=== PATIENT | male | born 1990 | race Caucasian/White ===

== ENCOUNTER 2017-12-01 19:15 | Emergency (ER) | payer OTHER, SELFPAY ==
[2017-12-01 20:07] LABS: Absolute Lymphocytes (CBC) 3.7 K/uL (0.7-4.9); Absolute Monocytes 0.7 K/uL (0.1-1.3); Absolute Neutrophil 5.9 K/uL (1.8-8.0); Basophils % 0.4 % (0-1.3); Hematocrit 49.1 % (39.6-49.0); Lymphocytes % 34.8 % (15.3-44.8); MCH 30.8 pg (27.0-35.0); MCV 91.3 fL (80-100); MPV 9.3 fL (7.6-11.3); RBC Red Blood Cell Count 5.38 M/uL (4.33-5.43)
[2017-12-01] MEDS ORDERED: FAMOTIDINE 20 MG/2 ML VIAL IV ONE (20:08)
[2017-12-01] MEDS ORDERED: NA CHLORIDE 0.9% 1,000 ML ONE (20:08)
--- NOTE | 2017-12-01 20:20 | RAD REPORT ---
EXAM DESCRIPTION: US - Abdomen Exam Limited - 12/01/2017 8:09 pm CLINICAL HISTORY: Abdominal pain. COMPARISON: None. FINDINGS: The gallbladder demonstrates multiple shadowing gallstones. No pericholecystic fluid or ga llbladder wall thickening. The common bile duct is normal measuring 3 mm. The liver demonstrates no findings of intrahepatic biliary dilatation. IMPRESSION: Cholelithiasis.
[2017-12-01 20:22] LABS: Potassium 3.7 mEq/L (3.6-5.0)
[2017-12-01 20:25] LABS: Albumin 4.9 g/dL (3.2-5.5); Bilirubin Total 0.5 mg/dL (0.3-1.2); Protein, Total 7.8 g/dL (6.0-8.3)
[2017-12-01 20:31] LABS: CKMB Creatine Kinase MB 1.7 ng/ml (0.3-4.0)
--- NOTE | 2017-12-01 20:36 | RAD REPORT ---
EXAM DESCRIPTION: RAD - Chest Pa And Lat (2 Views) - 12/01/2017 8:30 pm CLINICAL HISTORY: Chest pain. COMPARISON: 09/25/2017 FINDINGS: The lungs are clear. The heart is normal in size. No displaced fractures. IMPRESSION: No acute or concerning finding suspected.
--- NOTE | 2017-12-01 20:57 | ER ---
Nurse's Notes [facility] Name: Dipesh Benitez Age: 27 yrs Sex: Male : 1990 Arrival Date: 12/01/2017 Time: 19:18 Bed 28 Private MD: Diagnosis: Abdominal tenderness;Other chest pain;Cholelithiasis;Obesity, unspecified Presentation: 12/01 19:25 Presenting complaint: Patient states: Describing epigastric pain radiating to chest, on lp1 and off since November 20; States eating makes pain worse; Taking Omeprazole with no relief. Transition of care: patient was not received from another setting of care. Onset of symptoms was November 20, 2017. Care prior to arrival: None. 19:25 Method Of Arrival: Ambulatory lp1 19:25 Acuity: ARLINE 3 lp1 Historical: - Allergies: 19:27 No Known Allergies; lp1 - Home Meds: 19:27 omeprazole 40 mg Oral cpDR 1 cap once daily [Active]; lp1 - PMHx: 19:27 GERD; lp1 - PSHx: 19:27 Tonsillectomy; lp1 - Immunization history:: Adult Immunizations up to date. - Social history:: Smoking status: Patient uses tobacco products, smokes two packs cigarettes per day. - Family history:: not pertinent. Screenin:27 Abuse screen: Denies threats or abuse. Denies injuries from another. Nutritional lp1 screening: No deficits noted. Tuberculosis screening: No symptoms or risk factors identified. Fall Risk None identified. Assessment: 19:40 General: Appears in no apparent distress. Behavior is calm, cooperative, appropriate lk1 for age. Pain: Complains of pain in epigastric area Pain radiates to chest Pain currently is 7 out of 10 on a pain scale. Aggravated by eating. Neuro: Level of Consciousness is awake, alert, obeys commands, Oriented to person, place, time, situation. Cardiovascular: Heart tones S1 S2 present Capillary refill is brisk Patient's skin is warm and dry. Respiratory: Airway is patent Respiratory effort is even, unlabored, Respiratory pattern is regular, symmetrical. GI: Abdomen is non-distended, obese, Bowel sounds present X 4 quads. Reports bloating, epigastric pain, gaseousness. : No signs and/or symptoms were reported regarding the genitourinary system. EENT: No signs and/or symptoms were reported regarding the EENT system. Derm: No signs and/or symptoms reported regarding the dermatologic system. Musculoskeletal: No signs and/or symptoms reported regarding the musculoskeletal system. Vital Signs: 19:26 BP 144 / 98; Pulse 95; Resp 18; Temp 98.6(O); Pulse Ox 98% on R/A; Weight 149.69 kg; lp1 Height 5 ft. 11 in. (180.34 cm); Pain 7/10; 20:35 BP 137 / 86; Pulse 74; Resp 16; Pulse Ox 100% on R/A; Pain 6/10; lk1 19:26 Body Mass Index 46.03 (149.69 kg, 180.34 cm) lp1 ED Course: 19:18 Patient arrived in ED. al2 19:26 Triage completed. lp1 19:26 Arm band placed on left wrist. lp1 19:28 Malathi Retana, SALOME is Primary Nurse. lk1 19:29 Vaibhav Savage MD is Attending Physician. rose 20:00 Inserted saline lock: 22 gauge in right antecubital area, using aseptic technique. lk1 Blood collected. 20:09 US Abdomen Limited In Process Unspecified. EDMS 20:10 Ultrasound completed. Patient tolerated well. cy 20:30 Chest Pa And Lat (2 Views) XRAY In Process Unspecified. EDMS 20:57 Mike Zaman MD is Referral Physician. rose 21:44 Patient has correct armband on for positive identification. Bed in low position. Call lk1 light in reach. Adult w/ patient. 21:44 No provider procedures requiring assistance completed. IV discontinued, intact, lk1 bleeding controlled, No redness/swelling at site. Pressure dressing applied. Administered Medications: 20:00 Drug: Pepcid 20 mg Route: IVP; Site: right antecubital; lk1 20:30 Follow up: Response: No adverse reaction; No change in condition lk1 20:40 Drug: NS 0.9% 1000 ml Route: IV; Rate: 1 bolus; Site: left antecubital; lk1 21:45 Follow up: Response: No adverse reaction; IV Status: Completed infusion lk1 Outcome: 20:57 Discharge ordered by . rose 21:44 Discharged to home ambulatory, with significant other. lk1 21:44 Condition: good 21:44 Discharge instructions given to patient, significant other, Instructed on discharge instructions, follow up and referral plans. medication usage, safety practices, Demonstrated understanding of instructions, follow-up care, medications, Prescriptions given X 3. 21:45 Patient left the ED. lk1 Signatures: Dispatcher [employer] EDVaibhav Peres MD MD cha Pena, Laura RN RN lp1 Malathi Retana RN RN lk1 Dex Mata Angelica al2
--- NOTE | 2017-12-01 20:57 | EDPHYS ---
Physician Documentation [facility] Name: Dipesh Benitez Age: 27 yrs Sex: Male : 1990 Arrival Date: 12/01/2017 Time: 19:18 Bed 28 Private MD: Vaibhav Montalvo HPI: 12/01 19:35 This 27 yrs old Male presents to ER via Ambulatory with complaints of rose Epigastric Pain. 19:35 The patient or guardian reports chest pain that is located primarily in the epigastric rose area. The patient presents with abdominal pain. Onset: The symptoms/episode began/occurred today. The symptoms do not radiate. The pain does not radiate. Associated signs and symptoms: none. The symptoms are described as crampy. Modifying factors: The symptoms are alleviated by nothing, the symptoms are aggravated by food. Associated signs and symptoms: The patient has no apparent associated signs or symptoms. Historical: - Allergies: 19:27 No Known Allergies; lp1 - Home Meds: 19:27 omeprazole 40 mg Oral cpDR 1 cap once daily [Active]; lp1 - PMHx: 19:27 GERD; lp1 - PSHx: 19:27 Tonsillectomy; lp1 - Immunization history:: Adult Immunizations up to date. - Social history:: Smoking status: Patient uses tobacco products, smokes two packs cigarettes per day. - Family history:: not pertinent. ROS: 19:35 Constitutional: Negative for fever, chills, and weight loss, Eyes: Negative for injury, rose pain, redness, and discharge, ENT: Negative for injury, pain, and discharge, Neck: Negative for injury, pain, and swelling, Cardiovascular: Negative for chest pain, palpitations, and edema, Respiratory: Negative for shortness of breath, cough, wheezing, and pleuritic chest pain, Back: Negative for injury and pain, : Negative for injury, bleeding, discharge, and swelling, MS/Extremity: Negative for injury and deformity, Skin: Negative for injury, rash, and discoloration, Neuro: Negative for headache, weakness, numbness, tingling, and seizure, Psych: Negative for depression, anxiety, suicide ideation, homicidal ideation, and hallucinations, Allergy/Immunology: Negative for hives, rash, and allergies, Endocrine: Negative for neck swelling, polydipsia, polyuria, polyphagia, and marked weight changes, Hematologic/Lymphatic: Negative for swollen nodes, abnormal bleeding, and unusual bruising. 19:35 Abdomen/GI: Positive for abdominal pain, of the epigastric area, right upper quadrant and left upper quadrant. Exam: 19:35 Constitutional: This is a well developed, well nourished patient who is awake, alert, rose and in no acute distress. Head/Face: Normocephalic, atraumatic. Eyes: Pupils equal round and reactive to light, extra-ocular motions intact. Lids and lashes normal. Conjunctiva and sclera are non-icteric and not injected. Cornea within normal limits. Periorbital areas with no swelling, redness, or edema. ENT: Nares patent. No nasal discharge, no septal abnormalities noted. Tympanic membranes are normal and external auditory canals are clear. Oropharynx with no redness, swelling, or masses, exudates, or evidence of obstruction, uvula midline. Mucous membranes moist. Neck: Trachea midline, no thyromegaly or masses palpated, and no cervical lymphadenopathy. Supple, full range of motion without nuchal rigidity, or vertebral point tenderness. No Meningismus. Cardiovascular: Regular rate and rhythm with a normal S1 and S2. No gallops, murmurs, or rubs. Normal PMI, no JVD. No pulse deficits. Respiratory: Lungs have equal breath sounds bilaterally, clear to auscultation and percussion. No rales, rhonchi or wheezes noted. No increased work of breathing, no retractions or nasal flaring. Back: No spinal tenderness. No costovertebral tenderness. Full range of motion. Male : Normal genitalia with no discharge or lesions. Skin: Warm, dry with normal turgor. Normal color with no rashes, no lesions, and no evidence of cellulitis. MS/ Extremity: Pulses equal, no cyanosis. Neurovascular intact. Full, normal range of motion. Neuro: Awake and alert, GCS 15, oriented to person, place, time, and situation. Cranial nerves II-XII grossly intact. Motor strength 5/5 in all extremities. Sensory grossly intact. Cerebellar exam normal. Normal gait. Psych: Awake, alert, with orientation to person, place and time. Behavior, mood, and affect are within normal limits. 19:35 Chest/axilla: Inspection: normal, Palpation: tenderness, that is mild, of the xyphoid area. 19:35 Abdomen/GI: Inspection: distension, Bowel sounds: normal, Palpation: mild abdominal tenderness, in the epigastric area, right upper quadrant and left upper quadrant. Vital Signs: 19:26 BP 144 / 98; Pulse 95; Resp 18; Temp 98.6(O); Pulse Ox 98% on R/A; Weight 149.69 kg; lp1 Height 5 ft. 11 in. (180.34 cm); Pain 7/10; 20:35 BP 137 / 86; Pulse 74; Resp 16; Pulse Ox 100% on R/A; Pain 6/10; lk1 19:26 Body Mass Index 46.03 (149.69 kg, 180.34 cm) lp1 MDM: 19:38 Data reviewed: vital signs, nurses notes, lab test result(s), EKG, radiologic studies, [facility] plain films, ultrasound. 19:39 Patient medically screened. [facility] 12/01 19:35 Order name: CBC with Diff; Complete Time: 20:56 [facility] 12/01 19:35 Order name: Comprehensive Metabolic Panel; Complete Time: 20:56 [facility] 12/01 19:35 Order name: Lipase; Complete Time: 20:56 [facility] 12/01 19:35 Order name: Ckmb; Complete Time: 20:56 [facility] 12/01 19:35 Order name: Creatine Phosphokinase; Complete Time: 20:56 [facility] 12/01 19:35 Order name: Troponin (emerg Dept Use Only); Complete Time: 20:56 [facility] 12/01 19:35 Order name: EKG; Complete Time: 19:36 [facility] 12/01 19:35 Order name: EKG - Nurse/Tech; Complete Time: 21:04 [facility] 12/01 19:35 Order name: US Abdomen Limited; Complete Time: 20:56 [facility] 12/01 19:44 Order name: Chest Pa And Lat (2 Views) XRAY; Complete Time: 20:56 [facility] Administered Medications: 20:00 Drug: Pepcid 20 mg Route: IVP; Site: right antecubital; lk1 20:30 Follow up: Response: No adverse reaction; No change in condition lk1 20:40 Drug: NS 0.9% 1000 ml Route: IV; Rate: 1 bolus; Site: left antecubital; lk1 21:45 Follow up: Response: No adverse reaction; IV Status: Completed infusion lk1 Disposition: 12/01/17 20:57 Discharged to Home. Impression: Abdominal tenderness, Other chest pain, Cholelithiasis, Obesity, unspecified. - Condition is Stable. - Discharge Instructions: Abdominal Pain, Adult, Cholelithiasis, Cholelithiasis, [id number], Chest Wall Pain, [id number], Abdominal Pain, Adult, [id number]-[id number], Nonspecific Chest Pain, Bian-ag-Ryaz. - Prescriptions for Protonix 40 mg Oral Tablet, Delayed Release (E.C.) - take 1 tablet by ORAL route every 12 hours; 20 tablet. Tylenol- Codeine #3 300-30 mg Oral Tablet - take 2 tablets by ORAL route every 6 hours As needed; 24 tablet. Keflex 500 mg Oral Capsule - take 1 capsule by ORAL route every 6 hours for 10 days; 28 capsule. - Medication Reconciliation Form, Thank You Letter, Antibiotic Education, Prescription Opioid Use form. - Follow up: Private Physician; When: 2 - 3 days; Reason: Recheck today's complaints, Continuance of care, Re-evaluation by your physician. Follow up: Mike Zaman; When: 2 - 3 days; Reason: Recheck today's complaints, Re-evaluation by your physician. - Problem is new. - Symptoms have improved. Signatures: Dispatcher [employer] Vaibhav Oates MD MD cha Pena, Laura, RN RN lp1 Malathi Retana RN RN lk1
[2017-12-01 21:51] VITALS: TEMP 98.6
[2017-12-01 21:52] VITALS: BP 137/86; O2SAT 100
--- NOTE | 2017-12-03 12:53 | EKG ---
Test Date: 2017-12-01 Test Time: 20:55:24 Top Dyeing Machine Tender: [place] MEASUREMENT RESULTS: Intervals: Rate: 70 SC: 136 QRSD: 94 QT: 390 QTc: 421 [place]: P: 32 SC: 136 QRS: 61 T: 40 INTERPRETIVE STATEMENTS: Normal sinus rhythm Nonspecific ST and T wave abnormality Abnormal ECG Compared to ECG 01/22/2009 23:20:57 Sinus bradycardia no longer present ST (T wave) deviation still present Electronically Signed On 12-03-17 12:51:57 CDT by Scott Caldwell
== END 2017-12-01 21:45 | disposition home or self-care (01) ==
LOC: ER 19:15
DX: K80.20 Calculus of gallbladder without cholecystitis without obstruction (principal); R07.89 Other chest pain; E66.9 Obesity, unspecified; K21.9 Gastro-esophageal reflux disease without esophagitis; F17.210 Nicotine dependence, cigarettes, uncomplicated
CPT/HCPCS: 36415; 71046; 76705; 80053; 82550; 82553; 83690; 84484; 85025; 93005; 96361; 96374; 99284; J7030

== ENCOUNTER 2017-12-11 18:44 | Emergency (ER) | payer OTHER ==
[~2017-12-11 18:44] MED LIST: ONDANSETRON 4 MG/2 ML VIAL ONE
[2017-12-11] MEDS ORDERED: NA CHLORIDE 0.9% 1,000 ML ONE (20:14)
[2017-12-11] MEDS ORDERED: ONDANSETRON 4 MG/2 ML VIAL ONE (20:14)
[2017-12-11] MEDS ORDERED: DICYCLOMINE HCL 10 MG CAP ONE (20:14)
[2017-12-11 20:26] LABS: Absolute Lymphocytes (CBC) 2.4 K/uL (0.7-4.9); Absolute Monocytes 0.8 K/uL (0.1-1.3); Absolute Neutrophil 8.8 K/uL (1.8-8.0); Basophils % 0.2 % (0-1.3); Eosinophils % 1.5 % (0-4.4); Hematocrit 48.8 % (39.6-49.0); Lymphocytes % 19.3 % (15.3-44.8); MCH 31.4 pg (27.0-35.0); MCV 90.9 fL (80-100); MPV 9.7 fL (7.6-11.3); Monocytes % 6.9 % (3.3-12.3); RBC Red Blood Cell Count 5.36 M/uL (4.33-5.43)
[2017-12-11 20:40] LABS: Potassium 3.9 mEq/L (3.6-5.0)
[2017-12-11 20:46] LABS: Albumin 4.9 g/dL (3.2-5.5); Bilirubin Direct 0.1 mg/dL (0-0.2); Bilirubin Total 0.7 mg/dL (0.3-1.2); Protein, Total 7.9 g/dL (6.0-8.3)
[2017-12-11 20:49] LABS: CKMB Creatine Kinase MB 1.7 ng/ml (0.3-4.0)
[2017-12-11 20:50] LABS: Urine Blood NEGATIVE (NEG); Urine Glucose NEGATIVE (NEG); Urine Protein NEGATIVE (NEG); Urine Specific Gravity 1.015 (1.005-1.030); Urine pH 5.5 (5.0-7.0)
[2017-12-11 20:52] LABS: Urine Bacteria NONE SEEN /HPF (NONE SEEN); Urine Culture Reflex Order NOT NEEDED; Urine Mucus SLIGHT /HPF (NONE SEEN); Urine RBC NONE SEEN /HPF (NONE SEEN)
--- NOTE | 2017-12-11 22:11 | EDPHYS ---
Physician Documentation [facility] Name: Dipesh Benitez Age: 27 yrs Sex: Male : 1990 Arrival Date: 12/11/2017 Time: 18:47 Bed 13 Private MD: Michael Nuñez E ED Physician Fam Argueta HPI: 12/11 19:43 This 27 yrs old Male presents to ER via Ambulatory with complaints of cp Abdominal Pain. 19:43 The patient presents with abdominal pain. cp 19:43 Onset: The symptoms/episode began/occurred today. The symptoms do not radiate. cp Associated signs and symptoms: Pertinent positives: nausea, Pertinent negatives: blood in stools, constipation, diarrhea, dysuria, fever, testicular pain, vomiting. Modifying factors: the symptoms are aggravated by pressure. Historical: - Allergies: 18:52 No Known Allergies; hj - Home Meds: 18:52 omeprazole 40 mg Oral cpDR 1 cap once daily [Active]; hj - PMHx: 18:52 GERD; hj - PSHx: 18:52 Tonsillectomy; hj - Immunization history:: Adult Immunizations up to date. - Social history:: Smoking status: Patient/guardian denies using tobacco. ROS: 19:50 Constitutional: Negative for body aches, chills, fever, poor PO intake. cp 19:50 Eyes: Negative for injury, pain, redness, and discharge. cp 19:50 ENT: Negative for drainage from ear(s), ear pain, sore throat, difficulty swallowing, difficulty handling secretions. 19:50 Cardiovascular: Negative for chest pain, edema, palpitations. 19:50 Respiratory: Negative for cough, shortness of breath, wheezing. 19:50 Abdomen/GI: Positive for abdominal pain, nausea, Negative for vomiting, diarrhea, constipation, anorexia, black/tarry stool, rectal bleeding. 19:50 Back: Negative for pain at rest, pain with movement, radiated pain. 19:50 : Negative for urinary symptoms, hematuria, testicular pain 19:50 Skin: Negative for cellulitis, rash. 19:50 Neuro: Negative for altered mental status, dizziness, headache, weakness. 19:50 All other systems are negative. Exam: 19:57 Constitutional: The patient appears in no acute distress, alert, awake, non-toxic, well cp developed, well nourished, obese. 19:57 Head/Face: Normocephalic, atraumatic. Eyes: Pupils equal round and reactive to light, cp extra-ocular motions intact. Lids and lashes normal. Conjunctiva and sclera are non-icteric and not injected. Cornea within normal limits. Periorbital areas with no swelling, redness, or edema. ENT: Nares patent. No nasal discharge, no septal abnormalities noted. Tympanic membranes are normal and external auditory canals are clear. Oropharynx with no redness, swelling, or masses, exudates, or evidence of obstruction, uvula midline. Mucous membranes moist. Chest/axilla: Normal chest wall appearance and motion. Nontender with no deformity. No lesions are appreciated. Cardiovascular: Regular rate and rhythm with a normal S1 and S2. No gallops, murmurs, or rubs. Normal PMI, no JVD. No pulse deficits. Respiratory: Lungs have equal breath sounds bilaterally, clear to auscultation and percussion. No rales, rhonchi or wheezes noted. No increased work of breathing, no retractions or nasal flaring. 19:57 Abdomen/GI: Inspection: obese Bowel sounds: active, all quadrants, Palpation: soft, in all quadrants, moderate abdominal tenderness, in the right lower quadrant and left lower quadrant, rebound tenderness, is not appreciated, involuntary guarding, is not appreciated. 19:57 Back: CVA tenderness, is absent. 19:57 Skin: cellulitis, is not appreciated, no rash present. Vital Signs: 18:52 BP 113 / 71; Pulse 85; Resp 18; Temp 97.5(TE); Pulse Ox 97% on R/A; Weight 149.69 kg; hj Height 5 ft. 11 in. (180.34 cm); Pain 10/10; 21:00 BP 125 / 62; Pulse 83; Resp 16; Pulse Ox 100% on R/A; Pain 0/10; bs1 18:52 Body Mass Index 46.03 (149.69 kg, 180.34 cm) MDM: 19:29 Patient medically screened. 12/11 19:43 Order name: Amylase, Serum; Complete Time: 20:52 cp 12/11 19:43 Order name: Basic Metabolic Panel; Complete Time: 20:52 cp 12/11 19:43 Order name: CBC with Diff; Complete Time: 20:52 cp 12/11 19:43 Order name: Creatinine for Radiology; Complete Time: 20:52 cp 12/11 19:43 Order name: Hepatic Function; Complete Time: 20:52 cp 12/11 19:43 Order name: Lipase; Complete Time: 20:52 cp 12/11 19:43 Order name: Urine Microscopic Only; Complete Time: 21:48 cp 12/11 19:43 Order name: Ckmb; Complete Time: 20:52 cp 12/11 19:43 Order name: CK; Complete Time: 20:52 cp 12/11 20:21 Order name: Urine Dipstick--Ancillary (enter results); Complete Time: 20:52 rg2 12/11 19:43 Order name: IV Saline Lock; Complete Time: 20:19 cp 12/11 19:43 Order name: Labs collected and sent; Complete Time: 20:19 cp 12/11 19:43 Order name: Urine Dipstick-Ancillary (obtain specimen); Complete Time: 20:19 cp Administered Medications: 20:24 Drug: Zofran 4 mg Route: IVP; Site: right antecubital; bs1 22:08 Follow up: Response: No adverse reaction bs1 20:24 Drug: Bentyl 20 mg Route: PO; bs1 22:08 Follow up: Response: No adverse reaction bs1 20:25 Drug: NS 0.9% 1000 ml Route: IV; Rate: 1 bolus; Site: right antecubital; bs1 22:08 Follow up: IV Status: Completed infusion bs1 Disposition: 12/12 05:57 Co-signature as Attending Physician, Fam Argueta MD I agree with the assessment and tw4 plan of care. Disposition: 12/11/17 22:10 Patient has left against medical advice. - Patients states they are going to Home. - Condition is Stable. Signatures: Dispatcher [employer] Mynor Aguilar RN RN hj Page, Corey, PA PA cp Salazar, Brittany, RN RN bs1 Fam Argueta MD MD tw4
--- NOTE | 2017-12-11 22:11 | ER ---
Nurse's Notes [facility] Name: Dipesh Benitez Age: 27 yrs Sex: Male : 1990 Arrival Date: 12/11/2017 Time: 18:47 Bed 13 Private MD: Michael Nuñez E Diagnosis: Presentation: 12/11 18:50 Presenting complaint: Patient states: today, i worked out on the gymn and did some hj elliptical and afterwards my stomach hurts overwhelmingly, like a stabbing pain; reports nausea;. Transition of care: patient was not received from another setting of care. Onset of symptoms was December 11, 2017. Care prior to arrival: None. 18:50 Method Of Arrival: Ambulatory hj 18:50 Acuity: ARLINE 3 hj Triage Assessment: 18:52 General: Appears in no apparent distress. uncomfortable, Behavior is calm, cooperative, hj appropriate for age. Pain: Complains of pain in abdomen. GI: Reports lower abdominal pain, upper abdominal pain, nausea. Historical: - Allergies: 18:52 No Known Allergies; hj - Home Meds: 18:52 omeprazole 40 mg Oral cpDR 1 cap once daily [Active]; hj - PMHx: 18:52 GERD; hj - PSHx: 18:52 Tonsillectomy; hj - Immunization history:: Adult Immunizations up to date. - Social history:: Smoking status: Patient/guardian denies using tobacco. Screenin:15 Abuse screen: Denies threats or abuse. Denies injuries from another. Nutritional bs1 screening: No deficits noted. Tuberculosis screening: No symptoms or risk factors identified. Fall Risk None identified. Assessment: 18:52 GI: Bowel sounds present X 4 quads. Abd is soft. hj 18:55 General: Appears in no apparent distress. uncomfortable, Behavior is calm, cooperative, bs1 appropriate for age. Pain: Complains of pain in generalized abdomen Pain does not radiate. Pain currently is 4 out of 10 on a pain scale. Neuro: Level of Consciousness is awake, alert, obeys commands, Oriented to person, place, time, situation, Appropriate for age [employer] are equal bilaterally Moves all extremities. Gait is steady, Speech is normal. Cardiovascular: Denies diaphoresis, palpitations, shortness of breath, Heart tones S1 S2 present Capillary refill < 3 seconds Patient's skin is warm and dry. Respiratory: Airway is patent Trachea midline Respiratory effort is even, unlabored, Respiratory pattern is regular, symmetrical, Breath sounds are clear bilaterally. GI: Abdomen is round Bowel sounds present X 4 quads. Abd is soft X 4 quads Abdomen is tender to palpation X 4 quads. Reports lower abdominal pain, upper abdominal pain. :. EENT: No deficits noted. No signs and/or symptoms were reported regarding the EENT system. Derm: No deficits noted. No signs and/or symptoms reported regarding the dermatologic system. Musculoskeletal: Circulation, motion, and sensation intact. Capillary refill < 3 seconds, Range of motion: intact in all extremities. 19:55 Reassessment: No changes from previously documented assessment. Patient and/or family bs1 updated on plan of care and expected duration. Pain level reassessed. Patient is alert, oriented x 3, equal unlabored respirations, skin warm/dry/pink. 20:55 Reassessment: Patient appears in no apparent distress at this time. Patient and/or bs1 family updated on plan of care and expected duration. Pain level reassessed. Patient is alert, oriented x 3, equal unlabored respirations, skin warm/dry/pink. Patient states feeling better. 21:45 Reassessment: Patient appears in no apparent distress at this time. Patient is alert, bs1 oriented x 3, equal unlabored respirations, skin warm/dry/pink. Patient states "I feel better, I want to go home." Nurse Pagan Instructed patient on the importance of staying to get the CT done and make sure that he is stable. Patient decline and states "I have work in the morning, Im sorry, I just want to go home and get some rest." Nurse Pagan Informed KELLY Esposito. Okay to give AMA form. Vital Signs: 18:52 BP 113 / 71; Pulse 85; Resp 18; Temp 97.5(TE); Pulse Ox 97% on R/A; Weight 149.69 kg; Height 5 ft. 11 in. (180.34 cm); Pain 10/10; 21:00 BP 125 / 62; Pulse 83; Resp 16; Pulse Ox 100% on R/A; Pain 0/10; bs1 18:52 Body Mass Index 46.03 (149.69 kg, 180.34 cm) ED Course: 18:47 Patient arrived in ED. mr 18:47 Michael Nuñez MD is Private Physician. mr 18:51 Triage completed. hj 18:52 Arm band placed on left wrist. hj 19:28 [facility] cp 19:28 Fam Argueta MD is Attending Physician. cp 20:00 Urine collected: clean catch specimen, clear. lp1 20:10 Inserted saline lock: 20 gauge in right antecubital area, using aseptic technique. lp1 Blood collected. 20:10 Initial lab(s) drawn, by me, sent to lab. lp1 20:12 Latasha Smith, RN is Primary Nurse. bs1 21:15 Patient has correct armband on for positive identification. Bed in low position. Call bs1 light in reach. Side rails up X 1. Pulse ox on. NIBP on. 22:07 No provider procedures requiring assistance completed. IV discontinued, bleeding bs1 controlled, No redness/swelling at site. Pressure dressing applied. Administered Medications: 20:24 Drug: Zofran 4 mg Route: IVP; Site: right antecubital; bs1 22:08 Follow up: Response: No adverse reaction bs1 20:24 Drug: Bentyl 20 mg Route: PO; bs1 22:08 Follow up: Response: No adverse reaction bs1 20:25 Drug: NS 0.9% 1000 ml Route: IV; Rate: 1 bolus; Site: right antecubital; bs1 22:08 Follow up: IV Status: Completed infusion bs1 Outcome: 22:00 AMA AMA form signed bs1 22:00 Condition: stable 22:00 Discharge instructions given to AMA 22:10 Patient left the ED. bs1 Signatures: Gissel Perales mr CuetoJoanie, RN RN lp1 Mynor Arellano RN RN Vaibhav Garcia PA PA cp Latasha Smith, SALOME RN bs1 Corrections: (The following items were deleted from the chart) 18:55 18:52 Pulse 85bpm; Resp 18bpm; Pulse Ox 97% RA; Temp 97.5F Temporal; 149.69 kg; Height hj 5 ft. 11 in.; BMI: 46.0; Pain 10/10; hj
[2017-12-11 22:18] VITALS: TEMP 97.5
[2017-12-11 22:19] VITALS: BP 125/62; O2SAT 100
== END 2017-12-11 22:10 | disposition left against medical advice (07) ==
LOC: ER 18:44
DX: R10.9 Unspecified abdominal pain (principal); R11.0 Nausea; K21.9 Gastro-esophageal reflux disease without esophagitis
CPT/HCPCS: 36415; 80048; 80076; 81003; 81015; 82150; 82550; 82553; 83690; 85025; 96361; 96374; 99284; J2405; J7030

== ENCOUNTER 2018-08-13 19:18 | Emergency (ER) | payer OTHER, SELFPAY ==
--- NOTE | 2018-08-13 20:58 | EDPHYS ---
Physician Documentation [facility] Name: Dipesh Benitez Age: 28 yrs Sex: Male : 1990 Arrival Date: 08/13/2018 Time: 19:25 Bed 12 Private MD: FAB Physician Vaibhav Savage HPI: 08/13 19:48 This 28 yrs old Male presents to ER via Ambulatory with complaints of Sore kav Throat. 19:48 The patient presents with sore throat. The patient describes throat pain as burning. kav Onset: The symptoms/episode began/occurred acutely, 1 day(s) ago. Severity of symptoms: At their worst the symptoms were moderate, just prior to arrival. Modifying factors: The symptoms are alleviated by nothing, the symptoms are aggravated by nothing, Patient's oral intake status: good The patient has had contact with sick spouse. Associated signs and symptoms: Pertinent positives: fever. The patient has not recently seen a physician. Historical: - Allergies: 19:43 No Known Allergies; aa1 - Home Meds: 19:43 Protonix 40 mg Oral TbEC 1 tab once daily [Active]; aa1 - PMHx: 19:43 GERD; aa1 - PSHx: 19:43 Tonsillectomy; aa1 - Immunization history:: Flu vaccine is not up to date. - Social history:: Smoking status: Patient uses tobacco products, smokes two packs cigarettes per day. - Ebola Screening: : Patient denies exposure to infectious person Patient denies travel to an Ebola-affected area in the 21 days before illness onset. - Family history:: not pertinent. - Hospitalizations: : No recent hospitalization is reported. - History obtained from: . ROS: 19:49 Eyes: Negative for injury, pain, redness, and discharge, Neck: Negative for injury, kav pain, and swelling, Cardiovascular: Negative for chest pain, palpitations, and edema, Respiratory: Negative for shortness of breath, cough, wheezing, and pleuritic chest pain, Abdomen/GI: Negative for abdominal pain, nausea, vomiting, diarrhea, and constipation, Back: Negative for injury and pain, : Negative for injury, bleeding, discharge, and swelling, MS/Extremity: Negative for injury and deformity, Skin: Negative for injury, rash, and discoloration, Neuro: Negative for headache, weakness, numbness, tingling, and seizure, Psych: Negative for depression, anxiety, suicide ideation, homicidal ideation, and hallucinations, Allergy/Immunology: Negative for hives, rash, and allergies, Endocrine: Negative for neck swelling, polydipsia, polyuria, polyphagia, and marked weight changes, Hematologic/Lymphatic: Negative for swollen nodes, abnormal bleeding, and unusual bruising. 19:49 Constitutional: Positive for fever, Negative for body aches, chills. Exam: 19:49 Head/Face: Normocephalic, atraumatic. Eyes: Pupils equal round and reactive to light, kav extra-ocular motions intact. Lids and lashes normal. Conjunctiva and sclera are non-icteric and not injected. Cornea within normal limits. Periorbital areas with no swelling, redness, or edema. Neck: Trachea midline, no thyromegaly or masses palpated, and no cervical lymphadenopathy. Supple, full range of motion without nuchal rigidity, or vertebral point tenderness. No Meningismus. Chest/axilla: Normal chest wall appearance and motion. Nontender with no deformity. No lesions are appreciated. Cardiovascular: Regular rate and rhythm with a normal S1 and S2. No gallops, murmurs, or rubs. Normal PMI, no JVD. No pulse deficits. Respiratory: Lungs have equal breath sounds bilaterally, clear to auscultation and percussion. No rales, rhonchi or wheezes noted. No increased work of breathing, no retractions or nasal flaring. Abdomen/GI: Soft, non-tender, with normal bowel sounds. No distension or tympany. No guarding or rebound. No evidence of tenderness throughout. Back: No spinal tenderness. No costovertebral tenderness. Full range of motion. Skin: Warm, dry with normal turgor. Normal color with no rashes, no lesions, and no evidence of cellulitis. MS/ Extremity: Pulses equal, no cyanosis. Neurovascular intact. Full, normal range of motion. Neuro: Awake and alert, GCS 15, oriented to person, place, time, and situation. Cranial nerves II-XII grossly intact. Motor strength 5/5 in all extremities. Sensory grossly intact. Cerebellar exam normal. Normal gait. Psych: Awake, alert, with orientation to person, place and time. Behavior, mood, and affect are within normal limits. 19:49 Constitutional: The patient appears in no acute distress, alert, awake, comfortable, non-diaphoretic, non-toxic, well developed, well hydrated, well groomed, well nourished, febrile. 19:49 ENT: Posterior pharynx: erythema, that is moderate. Vital Signs: 19:43 BP 136 / 88; Pulse 89; Resp 18; Temp 99.5(O); Pulse Ox 97% on R/A; Weight 129.27 kg; aa1 Height 5 ft. 11 in. (180.34 cm); Pain 7/10; 21:00 BP 139 / 76; Pulse 85; Resp 18; Temp 98.9; Pulse Ox 98% on R/A; aa1 19:43 Body Mass Index 39.75 (129.27 kg, 180.34 cm) aa MDM: 19:40 Medical screening is not applicable. ka 19:49 Differential diagnosis: group A strep tonsillitis, laryngitis, pharyngitis. Data ka reviewed: vital signs, nurses notes. 08/13 19:51 Order name: Strep; Complete Time: 20:59 ka 08/13 20:59 Interpretation: Within normal limits. [facility] 08/13 20:53 Order name: Throat Culture EDMS Administered Medications: No medications were administered Disposition: 08/14 06:33 Co-signature as Attending Physician, Vaibhav Savage MD I agree with the assessment and [facility] plan of care. Disposition: 08/13/18 20:57 Discharged to Home. Impression: Streptococcal pharyngitis. - Condition is Stable. - Discharge Instructions: Pharyngitis, Strep Throat, [id number]. - Prescriptions for Amoxicillin 875 mg Oral Tablet - take 1 tablet by ORAL route every 12 hours for 10 days; 20 tablet. Ibuprofen 800 mg Oral Tablet - take 1 tablet by ORAL route every 12 hours As needed take with food; 20 tablet. - Work release form, Medication Reconciliation Form, Thank You Letter, Antibiotic Education, Prescription Opioid Use form. - Follow up: Private Physician; When: 2 - 3 days; Reason: Recheck today's complaints, Continuance of care, Re-evaluation by your physician. - Problem is new. - Symptoms are unchanged. Signatures: Dispatcher [employer] EDMS Lorene Erickson RN RN denny1 Vaibhav Savage MD MD cha Vern, Katherine, INTERNAL COMBUSTION ENGINE SUBASSEMBLER INTERNAL COMBUSTION ENGINE SUBASSEMBLER kav Corrections: (The following items were deleted from the chart) 08/13 21:14 20:57 08/13/2018 20:57 Discharged to Home. Impression: Streptococcal pharyngitis. aa1 Condition is Stable. Discharge Instructions: Pharyngitis, Strep Throat, [id number]. Prescriptions for Amoxicillin 875 mg Oral Tablet - take 1 tablet by ORAL route every 12 hours for 10 days; 20 tablet, Ibuprofen 800 mg Oral Tablet - take 1 tablet by ORAL route every 12 hours As needed take with food; 20 tablet. and Forms are Medication Reconciliation Form, Thank You Letter, Antibiotic Education, Prescription Opioid Use. Follow up: Private Physician; When: 2 - 3 days; Reason: Recheck today's complaints, Continuance of care, Re-evaluation by your physician. Problem is new. Symptoms are unchanged. kav
--- NOTE | 2018-08-13 20:58 | ER ---
Nurse's Notes [facility] Name: Dipesh Benitez Age: 28 yrs Sex: Male : 1990 Arrival Date: 08/13/2018 Time: 19:25 Bed 12 Private MD: Diagnosis: Streptococcal pharyngitis Presentation: 08/13 19:40 Presenting complaint: Patient states: sore throat since this am. Reports his has aa1 also had a sore throat as well for the past 2 days. Transition of care: patient was not received from another setting of care. Onset of symptoms was August 13, 2018. Risk Assessment: Do you want to hurt yourself or someone else? Patient reports no desire to harm self or others. Initial Sepsis Screen: Does the patient meet any 2 criteria? No. Patient's initial sepsis screen is negative. Does the patient have a suspected source of infection? No. Patient's initial sepsis screen is negative. Care prior to arrival: None. 19:40 Method Of Arrival: Ambulatory aa1 19:40 Acuity: ARLINE 4 aa1 Historical: - Allergies: 19:43 No Known Allergies; aa1 - Home Meds: 19:43 Protonix 40 mg Oral TbEC 1 tab once daily [Active]; aa1 - PMHx: 19:43 GERD; aa1 - PSHx: 19:43 Tonsillectomy; aa1 - Immunization history:: Flu vaccine is not up to date. - Social history:: Smoking status: Patient uses tobacco products, smokes two packs cigarettes per day. - Ebola Screening: : Patient denies exposure to infectious person Patient denies travel to an Ebola-affected area in the 21 days before illness onset. - Family history:: not pertinent. - Hospitalizations: : No recent hospitalization is reported. - History obtained from: . Screenin:51 Abuse screen: Denies threats or abuse. Denies injuries from another. Nutritional aa1 screening: No deficits noted. Nutritional screening:. Tuberculosis screening: No symptoms or risk factors identified. Fall Risk None identified. Assessment: 19:51 General: Appears in no apparent distress. comfortable, Behavior is calm, cooperative, aa1 appropriate for age. Pain: Complains of pain in neck and throat Quality of pain is described as aching, Is continuous. Neuro: Level of Consciousness is awake, alert, obeys commands, Oriented to person, place, time, situation, Gait is steady, Speech is normal. Respiratory: Airway is patent Respiratory effort is even, unlabored, Respiratory pattern is regular, symmetrical, Breath sounds are clear bilaterally. Denies cough. GI: No signs and/or symptoms were reported involving the gastrointestinal system. : No signs and/or symptoms were reported regarding the genitourinary system. EENT: Throat is clear is reddened Reports pain when swallowing. Derm: Skin is intact, is healthy with good turgor, Skin is pink, warm \T\ dry. Musculoskeletal: Circulation, motion, and sensation intact. Capillary refill < 3 seconds. 21:00 Reassessment: Patient appears in no apparent distress at this time. Patient is alert, aa1 oriented x 3, equal unlabored respirations, skin warm/dry/pink. Discussed d/c \T\ f/u instructions with pt \T\ spouse; denies questions or concerns at this time. Vital Signs: 19:43 BP 136 / 88; Pulse 89; Resp 18; Temp 99.5(O); Pulse Ox 97% on R/A; Weight 129.27 kg; aa1 Height 5 ft. 11 in. (180.34 cm); Pain 7/10; 21:00 BP 139 / 76; Pulse 85; Resp 18; Temp 98.9; Pulse Ox 98% on R/A; aa1 19:43 Body Mass Index 39.75 (129.27 kg, 180.34 cm) aa1 ED Course: 19:25 Patient arrived in ED. ag3 19:39 Lorene Erickson, RN is Primary Nurse. aa1 19:40 Edith Samson FNP [facility] kav 19:40 Vaibhav Savage MD is Attending Physician. kav 19:40 Triage completed. aa1 19:43 Arm band placed on right wrist. aa1 19:51 Patient has correct armband on for positive identification. Call light in reach. aa1 21:00 No provider procedures requiring assistance completed. Patient did not have IV access aa1 during this emergency room visit. Administered Medications: No medications were administered Outcome: 20:57 Discharge ordered by . kav 21:00 Discharged to home ambulatory, with significant other. aa1 21:00 Condition: stable 21:00 Discharge instructions given to patient, significant other, Instructed on discharge instructions, follow up and referral plans. medication usage, Demonstrated understanding of instructions, follow-up care, medications, Prescriptions given X 2. 21:14 Patient left the ED. aa1 Signatures: Lorene Erickson RN RN aa1 Edith Samson, FISH HATCHERY SPECIALIST FISH HATCHERY SPECIALIST Thea Bacon3
[2018-08-13 21:22] VITALS: BP 136/88; TEMP 99.5; O2SAT 97
== END 2018-08-13 21:14 | disposition home or self-care (01) ==
LOC: ER 19:18
DX: J02.0 Streptococcal pharyngitis (principal); F17.210 Nicotine dependence, cigarettes, uncomplicated; K21.9 Gastro-esophageal reflux disease without esophagitis
CPT/HCPCS: 87070; 87081; 99282

== ENCOUNTER 2021-09-10 21:27 | Emergency (ER) | payer SELFPAY ==
[2021-09-10] MEDS ORDERED: ONDANSETRON 4 MG/2 ML VIAL ONE (22:51)
[2021-09-10] MEDS ORDERED: MORPHINE 4 MG/ML SYR ONE (22:51)
[2021-09-10] MEDS ORDERED: NA CHLORIDE 0.9% 1,000 ML ONE (22:52)
[2021-09-10] MEDS ORDERED: FAMOTIDINE 20 MG/2 ML VIAL IV ONE (22:52)
[2021-09-10 23:05] LABS: Urine Blood Negative (Negative); Urine Glucose Negative (Negative); Urine Protein Negative (Negative); Urine pH 5.5 (5.0-7.0)
[2021-09-10 23:07] LABS: Absolute Lymphocytes (CBC) 1.7 K/uL (0.7-4.9); Hematocrit 47.4 % (39.6-49.0); Lymphocytes % 28.3 % (15.3-44.8); MPV 9.3 fL (7.6-11.3); RBC Red Blood Cell Count 4.96 M/uL (4.33-5.43)
[2021-09-10 23:21] LABS: ALT/SGPT 56 U/L (12-78); AST/SGOT 35 U/L (15-37); Albumin 4.1 g/dL (3.4-5.0); Alkaline Phosphatase 108 U/L (45-117); BUN Blood Urea Nitrogen 15 mg/dL (7-18); Bicarbonate 28 mmol/L (21-32); Bilirubin Direct < 0.1 mg/dL (0-0.2); Bilirubin Total 0.2 mg/dL (0.2-1.0); Glucose Level 95 mg/dL (74-106); Lipase 404 U/L (73-393); Potassium 4.3 mmol/L (3.5-5.1); Protein, Total 7.6 g/dL (6.4-8.2); Sodium Level 140 mmol/L (136-145)
--- NOTE | 2021-09-11 02:27 | EDPHYS ---
Physician Documentation [facility] Name: Dipesh Benitez Age: 31 yrs Sex: Male : 1990 Arrival Date: 09/10/2021 Time: 21:29 Bed 18 Private MD: ED Physician John Perez HPI: 09/10 22:30 This 31 yrs old Male presents to ER via Ambulatory with complaints of Abdominal Pain. cp 22:30 The patient presents with abdominal pain mid abdomen. Onset: The symptoms/episode cp began/occurred suddenly, 1 hour(s) ago. The symptoms do not radiate. Associated signs and symptoms: Pertinent positives: nausea, Pertinent negatives: chest pain, constipation, diarrhea, dysuria, fever, shortness of breath, testicular pain, vomiting. The symptoms are described as constant, "ripping". Severity of pain: in the emergency department the pain is unchanged despite home interventions. Historical: - Allergies: 22:00 No Known Allergies; vc1 - Home Meds: 22:00 Protonix 40 mg Oral TbEC 1 tab once daily [Active]; vc1 09/11 02:41 omeprazole 40 mg Oral cpDR 1 cap once daily [Active]; st1 - PMHx: 09/10 22:00 GERD; vc1 - Immunization history:: Adult Immunizations up to date, Client reports receiving the 1st dose of the Covid vaccine. - Social history:: Smoking status: Patient reports the use of cigarette tobacco products, smokes 1.5 packs per day. ROS: 22:35 Constitutional: Negative for body aches, chills, fever, poor PO intake. cp 22:35 Eyes: Negative for injury, pain, redness, and discharge. cp 22:35 Respiratory: Negative for cough, shortness of breath, wheezing. 22:35 Abdomen/GI: Positive for abdominal pain, nausea, Negative for vomiting, diarrhea, constipation. Exam: 22:40 Constitutional: The patient appears in no acute distress, alert, awake, cp non-diaphoretic, non-toxic, well developed, well nourished, obese, uncomfortable. 22:40 Head/Face: Normocephalic, atraumatic. cp 22:40 Eyes: Periorbital structures: appear normal, Conjunctiva: normal, no exudate, no injection, Sclera: no appreciated abnormality, Lids and lashes: appear normal, bilaterally. 22:40 ENT: External ear(s): are unremarkable, Nose: is normal, Mouth: Lips: moist, Oral mucosa: pink and intact, moist, Posterior pharynx: Airway: no evidence of obstruction, patent. 22:40 Chest/axilla: Inspection: normal, Palpation: is normal, no crepitus, no tenderness. 22:40 Cardiovascular: Rate: normal, Rhythm: regular. 22:40 Respiratory: the patient does not display signs of respiratory distress, Respirations: normal, no use of accessory muscles, no retractions, labored breathing, is not present, Breath sounds: are clear throughout, no decreased breath sounds, no stridor, no wheezing. 22:40 Abdomen/GI: Inspection: abdomen appears normal, Bowel sounds: active, all quadrants, Palpation: soft, in all quadrants, severe abdominal tenderness, in the mid abdomen, rebound tenderness, is not appreciated, voluntary guarding, is elicited in the mid abdomen. 22:40 Back: pain, is absent, ROM is normal. 22:40 Neuro: Orientation: to person, place \\T\\ time. Mentation: is normal, Motor: moves all fours, strength is normal, Sensation: is normal. Vital Signs: 22:05 BP 158 / 125; Pulse 64; Resp 22; Temp 98; Pulse Ox 98% on R/A; Weight 127.01 kg; Height vc1 5 ft. 11 in. (180.34 cm); Pain 10/10; 23:35 BP 128 / 70; Pulse 75; Resp 20; Pulse Ox 95% ; st1 09/11 01:08 BP 141 / 71; Pulse 70; Resp 18; Pulse Ox 98% ; st1 02:34 BP 124 / 65; Pulse 60; Resp 16; Pulse Ox 99% ; st1 03:20 BP 125 / 65; Pulse 62; Resp 14; Pulse Ox 100% ; st1 09/10 22:05 Body Mass Index 39.05 (127.01 kg, 180.34 cm) vc1 MDM: 09/10 22:15 Patient medically screened. cp 22:30 Differential diagnosis: appendicitis, bowel obstruction, cholecystitis, Cholelithiasis, cp diverticulitis, gastritis, pancreatitis, Peptic Ulcer Disease, Perf. Duodenal Ulcer, Perf. Gastric Ulcer, Testicular Torsion, Ureterolithiasis, urinary tract infection. 09/11 02:27 Data reviewed: vital signs, nurses notes, lab test result(s), radiologic studies, CT cp scan, ultrasound. 02:27 Counseling: I had a detailed discussion with the patient and/or guardian regarding: the cp historical points, exam findings, and any diagnostic results supporting the discharge/admit diagnosis, lab results, radiology results, the need for outpatient follow up, for definitive care, a general surgeon, to return to the emergency department if symptoms worsen or persist or if there are any questions or concerns that arise at home. Response to treatment: the patient's symptoms have markedly improved after treatment. Special discussion: Based on the patient's Hx, exam, and Dx evaluation, there is no indication for emergent surgery or inpatient Tx. It is understood by the patient/guardian that if the Sx's persist or worsen they need to return immediately for re-evaluation. ED course: VSS. Pain markedly improved. Discussed results of labs and radiology studies. Review of previous visits show patient has history of gallstones. Will discharge to home for continued monitoring and recommend general surgery f/u. 09/10 22:24 Order name: Basic Metabolic Panel; Complete Time: 00:01 cp 09/11 00:01 Interpretation: Normal except: GFR 80. cp 09/10 22:24 Order name: CBC with Diff; Complete Time: 23:34 cp 09/11 00:01 Interpretation: Normal except: MCV 95.5; MN% 12.4. cp 09/10 22:24 Order name: Hepatic Function; Complete Time: 00:01 cp 09/11 00:01 Interpretation: Reviewed. cp 09/10 22:24 Order name: Lipase; Complete Time: 23:34 cp 09/11 01:48 Interpretation: Abnormal: LIP 404. cp 09/10 22:25 Order name: CT Abd/Pelvis - IV Contrast Only cp 09/10 23:05 Order name: Urine Dipstick-Ancillary; Complete Time: 00:01 EDMS 09/10 22:24 Order name: IV Saline Lock; Complete Time: 22:46 cp 09/11 01:40 Order name: US Abdomen Limited: gallbladder cp 09/10 22:24 Order name: Labs collected and sent; Complete Time: 22:47 cp 09/10 22:25 Order name: Urine Dipstick-Ancillary (obtain specimen); Complete Time: 23:05 cp 09/11 01:40 Order name: NPO; Complete Time: 01:41 cp 09/11 02:25 Order name: PO challenge cp Administered Medications: 09/10 22:51 Drug: Pepcid (famotidine) 20 mg Route: IVP; Site: right antecubital; st1 22:52 Drug: morphine 4 mg Route: IVP; Site: right antecubital; st1 22:52 Drug: NS 0.9% 1000 ml Route: IV; Rate: 1 bolus; Site: right antecubital; st1 22:52 Drug: Zofran (Ondansetron) 4 mg Route: IVP; Site: right antecubital; st1 09/11 02:25 CANCELLED (Physician Discretion): NS 0.9% 1000 ml IV at 1 bolus Per protocol; 1000 mL cp bolus 02:30 Drug: GI Cocktail without - (Maalox Suspension 30 ml, Lidocaine Liquid 2 % 15 st1 ml) Route: PO; Disposition: 03:47 Co-signature as Attending Physician, John Perez MD I agree with the assessment and kdr plan of care. Disposition Summary: 09/11/21 02:27 Discharge Ordered Location: Home cp Problem: new cp Symptoms: have improved cp Condition: Stable cp Diagnosis - Other cholelithiasis without obstruction cp Followup: cp - With: Bassam Sams MD - When: 2 - 3 days - Reason: Recheck today's complaints Discharge Instructions: - Discharge Summary Sheet cp - Cholelithiasis cp Forms: - Medication Reconciliation Form cp - Work release form cp - Thank You Letter cp - Antibiotic Education cp - Prescription Opioid Use cp Prescriptions: - Zofran 4 mg Oral Tablet - take 1 tablet by ORAL route every 12 hours As needed; 20 tablet; Refills: 0, cp Product Selection Permitted - dicyclomine 20 mg Oral Tablet - take 1 tablet by ORAL route 4 times per day; 30 tablet; Refills: 0, Product cp Selection Permitted Signatures: Dispatcher [employer] John Jimenez MD MD kdr Attema, Lee, FNP-C [employer] Vaibhav Celis PA PA cp Kathryn Stern RN RN st1 Norma Snider RN RN vc1 Corrections: (The following items were deleted from the chart) 09/10 22:10 22:10 Home Meds: omeprazole 40 mg Oral cpDR 1 cap once daily; vc1 vc1 09/11 00:01 00:01 Normal except: MCV 95.5. cp cp 02:25 01:48 NS 0.9% 1000 ml IV at 1 bolus Per protocol; 1000 mL bolus ordered. cp cp 02:28 09/10 22:30 Onset: The symptoms/episode began/occurred 1 hour(s) ago, cp cp
--- NOTE | 2021-09-11 02:27 | ER ---
Nurse's Notes [facility] Name: Dipesh Benitez Age: 31 yrs Sex: Male : 1990 Arrival Date: 09/10/2021 Time: 21:29 Bed 18 Private MD: Diagnosis: Other cholelithiasis without obstruction Presentation: 09/10 21:59 Chief complaint: Patient states: Stomach is hurting really really really bad, it feels vc1 like it is ripping apart. It just started about an hour ago. Coronavirus screen: Vaccine status: Patient reports receiving the 1st dose of the Covid vaccine. pfizer. Ebola Screen: No symptoms or risks identified at this time. Initial Sepsis Screen: Does the patient meet any 2 criteria?. Risk Assessment: Do you want to hurt yourself or someone else? Patient reports no desire to harm self or others. 21:59 Method Of Arrival: Ambulatory vc1 22:05 Initial Sepsis Screen: Does the patient have a suspected source of infection? No. vc1 Patient's initial sepsis screen is negative. Note Taken 4 pepto tablets. Onset of symptoms was September 10, 2021. 22:05 Acuity: ARLINE 3 vc1 Triage Assessment: 22:01 General: Appears uncomfortable, Behavior is cooperative, appropriate for age, anxious. vc1 Pain: Complains of pain in epigastric area, right upper quadrant and left upper quadrant Pain currently is 10 out of 10 on a pain scale. Quality of pain is described as crushing, pressure, stabbing, Pain began suddenly, 1 hour ago. EENT: No deficits noted. Neuro: No deficits noted. Cardiovascular: No deficits noted. GI: Abdomen is round non-distended, obese, Bowel sounds present X 4 quads. hyperactive in right lower quadrant and left lower quadrant Abd is soft Abdomen is tender to palpation X 4 quads. : No signs and/or symptoms were reported regarding the genitourinary system. Historical: - Allergies: 22:00 No Known Allergies; vc1 - Home Meds: 22:00 Protonix 40 mg Oral TbEC 1 tab once daily [Active]; vc1 09/11 02:41 omeprazole 40 mg Oral cpDR 1 cap once daily [Active]; st1 - PMHx: 09/10 22:00 GERD; vc1 - Immunization history:: Adult Immunizations up to date, Client reports receiving the 1st dose of the Covid vaccine. - Social history:: Smoking status: Patient reports the use of cigarette tobacco products, smokes 1.5 packs per day. Screenin:09 Abuse screen: Denies threats or abuse. Nutritional screening: No deficits noted. vc1 Tuberculosis screening: No symptoms or risk factors identified. Fall Risk None identified. Assessment: 09/11 01:05 Reassessment: Patient appears in no apparent distress at this time. General: Appears in st1 no apparent distress. Pain: Denies pain. Neuro: No deficits noted. Cardiovascular: No deficits noted. Respiratory: No deficits noted. Vital Signs: 09/10 22:05 BP 158 / 125; Pulse 64; Resp 22; Temp 98; Pulse Ox 98% on R/A; Weight 127.01 kg; Height vc1 5 ft. 11 in. (180.34 cm); Pain 10/10; 23:35 BP 128 / 70; Pulse 75; Resp 20; Pulse Ox 95% ; st1 09/11 01:08 BP 141 / 71; Pulse 70; Resp 18; Pulse Ox 98% ; st1 02:34 BP 124 / 65; Pulse 60; Resp 16; Pulse Ox 99% ; st1 03:20 BP 125 / 65; Pulse 62; Resp 14; Pulse Ox 100% ; st1 01 22:05 Body Mass Index 39.05 (127.01 kg, 180.34 cm) vc1 ED Course: 09/10 21:29 Patient arrived in ED. bp1 22:02 Vaibhav Celis PA is PHCP. cp 22:02 John Perez MD is Attending Physician. cp 22:09 Triage completed. vc1 22:10 Arm band placed on right wrist. vc1 22:10 Patient has correct armband on for positive identification. vc1 22:22 Kathryn Stern, SALOME is Primary Nurse. st1 22:45 Labs ordered per protocol. Drawn by ED staff. CT ordered. st1 22:47 Basic Metabolic Panel Sent. st1 22:47 CBC with Diff Sent. st1 22:47 Hepatic Function Sent. st1 22:47 Lipase Sent. st1 09/11 00:09 CT Abd/Pelvis - IV Contrast Only In Process Unspecified. EDMS 01:04 No provider procedures requiring assistance completed. st1 02:16 US Abdomen Limited: gallbladder In Process Unspecified. EDMS 02:26 Bassam Sams MD is Referral Physician. cp 02:50 Patient provided water for PO challenge as ordered. st1 02:51 Patient states he tolerated the water. PA notified. st1 03:22 intact, bleeding controlled, No redness/swelling at site. Pressure dressing applied. st1 Administered Medications: 09/10 22:51 Drug: Pepcid (famotidine) 20 mg Route: IVP; Site: right antecubital; st1 22:52 Drug: morphine 4 mg Route: IVP; Site: right antecubital; st1 22:52 Drug: NS 0.9% 1000 ml Route: IV; Rate: 1 bolus; Site: right antecubital; st1 22:52 Drug: Zofran (Ondansetron) 4 mg Route: IVP; Site: right antecubital; st1 09/11 02:25 CANCELLED (Physician Discretion): NS 0.9% 1000 ml IV at 1 bolus Per protocol; 1000 mL cp bolus 02:30 Drug: GI Cocktail without - (Maalox Suspension 30 ml, Lidocaine Liquid 2 % 15 st1 ml) Route: PO; Outcome: 02:27 Discharge ordered by MD. cp 03:21 Discharged to home ambulatory, with family. st1 03:21 Condition: stable 03:21 Discharge instructions given to patient, family, Instructed on discharge instructions, follow up and referral plans. medication usage, Demonstrated understanding of instructions, follow-up care, medications, Prescriptions given X 2. 03:23 Patient left the ED. st1 Signatures: Dispatcher [employer] EDOR Vaibhav Celis PA PA cp Paniauga, Brittany bp1 Tingle, Shellie, RN RN st1 Norma Snider, RN RN vc1 Corrections: (The following items were deleted from the chart) 09/10 22:10 22:10 Home Meds: omeprazole 40 mg Oral cpDR 1 cap once daily; vc1 vc1
[2021-09-11] MEDS ORDERED: LIDOCAINE VISCOUS 2% SOLN 15 ML UDC ONE (02:29)
[2021-09-11] MEDS ORDERED: MAGNES/ALUMIN/SIMET 30ML UCUP ONE (02:29)
[2021-09-11 03:29] VITALS: TEMP 98
[2021-09-11 03:35] VITALS: BP 125/65; O2SAT 100
--- NOTE | 2021-09-11 11:57 | RAD REPORT ---
EXAM DESCRIPTION: US - Abdomen Exam Limited - 09/11/2021 2:17 am CLINICAL HISTORY: ABD PAIN COMPARISON: Abdomen Exam Limited dated 12/01/2017; Abdomen Pelvis W Contrast dated 09/10/2021 FINDINGS: The gallbladder demonstrates multiple gallstones. Gallbladder wall is upper limit normal. The common bile duct is normal measuring 4 mm. The liver demonstrates no findings of intrahepatic biliary dilatation. IMPRESSION: Cholelithiasis.
--- NOTE | 2021-09-11 16:03 | RAD REPORT ---
EXAM DESCRIPTION: Abdomen Pelvis W Contrast CLINICAL HISTORY: 31 years Male ABD PAIN COMPARISON: None. TECHNIQUE: Contiguous axial images obtained through the abdomen and pelvis following IV contrast. Re formatted images obtained. This exam was performed according to our department optimization program which includes automated exp osure control, adjustment of the mA and/or kv according to patient size and/or use of iterative recon struction technique. FINDINGS: The lung bases are clear. The liver is enlarged measuring 19 cm. Mild fatty replacement in the liver. The spleen and pancreas appear unremarkable. No adrenal masses. The kidneys appear unremarkable. No hydronephrosis. There are gallstones in the gallbladder. No aneurysmal dilatation of the aorta. No bowel obstruction. The appendix appears unremarkable. No significant free pelvic fluid. No acute osseous abnormality is identified. IMPRESSION: 1. Cholelithiasis. If there is clinical concern for the possibility of cholecystitis, sonography or nuclear medicine imaging could be obtained to better evaluate. 2. Enlarged fatty liver. Electronically signed by: Sundeep Dempsey MD 09/11/2021 12:14 AM MANAGER GAME Due to temporary technical issues with the PACS/Fluency reporting system, reports are being signed by the in house radiologist without review as a courtesy to ensure prompt reporting. The interpreting r adiologist is fully responsible for the content of the report.
== END 2021-09-11 03:23 | disposition home or self-care (01) ==
LOC: ER 21:27
DX: K80.80 Other cholelithiasis without obstruction (principal); K21.9 Gastro-esophageal reflux disease without esophagitis; F17.210 Nicotine dependence, cigarettes, uncomplicated
CPT/HCPCS: 36415; 74177; 76705; 80048; 80076; 81003; 83690; 85025; 96374; 96375; 99284; J2405; J7030; Q9967

== ENCOUNTER 2022-09-23 06:16 | Day surgery (SDC) | payer BC, SELFPAY ==
[2022-09-20 08:40] LABS: Absolute Lymphocytes (CBC) 1.8 K/uL (0.7-4.9); Hematocrit 47.3 % (39.6-49.0); Lymphocytes % 29.3 % (15.3-44.8); MCV 94.3 fL (80-100); MPV 8.7 fL (7.6-11.3); RBC Red Blood Cell Count 5.01 M/uL (4.33-5.43)
[2022-09-20 08:58] LABS: ALT/SGPT 54 U/L (16-61); AST/SGOT 29 U/L (15-37); Albumin 4.2 g/dL (3.4-5.0); Alkaline Phosphatase 97 U/L (45-117); BUN Blood Urea Nitrogen 16 mg/dL (7-18); Bicarbonate 23 mmol/L (21-32); Bilirubin Total 0.3 mg/dL (0.2-1.0); Glomerular Filtration Rate 96 ml/min (=/>90); Glucose Level 103 mg/dL (74-106); Lipase 179 U/L (73-393); Potassium 4.1 mmol/L (3.5-5.1); Protein, Total 7.6 g/dL (6.4-8.2); Sodium Level 139 mmol/L (136-145)
[2022-09-20 09:30] LABS: Bilirubin Direct < 0.1 mg/dL (0-0.2)
[2022-09-23] MEDS ORDERED: Ringers Lactate 1,000 ML IV ONE (06:38)
[2022-09-23] MEDS ORDERED: ACETAMINOPHEN 500 MG TAB ONE (06:59)
[2022-09-23] MEDS ORDERED: CELECOXIB 100 MG CAPSULE ONE (06:59)
[2022-09-23] MEDS ORDERED: LIDOCAINE 2% MPF 5 ML VIAL ONE (07:11)
[2022-09-23] MEDS ORDERED: FENTANYL CITR 100 MCG/2 ML ONE ×3 (07:11→08:24)
[2022-09-23] MEDS ORDERED: propofoL 200 MG/20 ML VIAL IV ONE (07:11)
[2022-09-23] MEDS ORDERED: ROCURONIUM 50 MG/5 ML VIAL IV ONE (07:11)
[2022-09-23] MEDS ORDERED: MIDAZOLAM HCL 2 MG/2 ML INJ ONE (07:12)
[2022-09-23] MEDS ORDERED: NS 0.9% VIAL 10 ML ONE (07:27)
[2022-09-23] MEDS: CEFOXITIN SODIUM 1 GM/VIAL ONE ×2 (07:29→07:30)
[2022-09-23] MEDS ORDERED: KETOROLAC 30 MG/ML INJ ONE (07:41)
[2022-09-23] MEDS ORDERED: ONDANSETRON 4 MG/2 ML VIAL ONE (07:43)
[2022-09-23] MEDS ORDERED: GLYCOPYRROLATE 0.2 MG/ML SYR ONE (08:36)
[2022-09-23] MEDS ORDERED: NEOSTIGMINE 1 MG/ML -5 ML ONE (08:38)
--- NOTE | 2022-09-23 08:51 | P.OP ---
Date of Service: 09/23/22 Preop diagnosis: Chronic cholecystitis and cholelithiasis Postop diagnosis: Same Procedure performed: Laparoscopic cholecystectomy Surgeon: Bassam Sams MD Rn Concurrent Review: Malika WILLIAMSON Estimated blood loss: Minimal Specimen: Gallbladder Findings: As above Anesthesia: General Complications: None Drains: None Fluids and blood products: Nonapplicable Disposition: Recovery room Operative note: Patient brought to the OR and placed in the supine position. General anesthesia begun. Patient prepped and draped in usual sterile fashion. Marcaine 0.5% infiltrated locally. 15 blade used to make a 1-1/2 cm supraumbilical midline incision. Subcutaneous tissue divided. Bleeding controlled with cautery. Fascia identified and divided. #1 Vicryl stay suture placed. Peritoneal cavity entered with sharp and blunt dissection. 12 mm trocar placed into the peritoneal cavity under direct vision. Pneumoperitoneum established. Then 3 trochars placed. 1 5 mm trocar placed in the epigastric region just to the right of midline. 2 5 mm trochars placed in the right subcostal region under direct vision. Laparoscopy revealed a distended gallbladder with chronic inflammation. Fundus identified and retracted inferolaterally. Cystic duct and cystic artery clearly identified after infundibulum was retracted inferolaterally. Cystic duct and cystic artery were identified with blunt dissection. Clips were placed and both structures divided. Cautery was used to remove the gallbladder from liver bed. Bleeding on the liver bed was controlled with cautery. Gallbladder was retrieved through the umbilicus via Endo Catch bag. Right upper quadrant was irrigated. Effluent was clear with no evidence of bile leakage or bowel injury. All trochars removed under direct vision. Stay sutures were tied to each other to reapproximate the fascial defect. Subcutaneous was irrigated and bleeding controlled cautery. 3-0 chromic used to approximate subcutaneous tissue. Staple used to close skin. Sterile dressing applied. Patient awakened and taken to recovery room in good general condition. CC: Dr. Hawkins's office
[2022-09-23] MEDS ORDERED: MEPERIDINE HCL 25 MG/ML SYR ONE (08:55)
[2022-09-23] MEDS ORDERED: HYDROCODONE/APAP 7.5/325 MG TAB PO PRN (08:56)
[2022-09-23] MEDS ORDERED: HYDROMORPHONE HCL 1 MG/ML INJ ONE (09:05)
[2022-09-23] MEDS ORDERED: HYDROCODONE/APAP 7.5/325 MG TAB ONE (10:13)
[2022-09-23 10:30] VITALS: TEMP 97.6; O2SAT 98
[2022-09-23 12:15] VITALS: BP 158/75
== END 2022-09-23 11:39 | disposition home or self-care (01) ==
LOC: OR 06:16
PROVIDERS: ATTEND Surgery
PROC: 0FT44ZZ Resection of Gallbladder, Percutaneous Endoscopic Approach (ICD-10-PCS; principal; 2022-09-23 07:30)
DX: K80.10 Calculus of gallbladder with chronic cholecystitis without obstruction (principal)
CPT/HCPCS: 85025; 80048; 36415; 80076; 88304; 83690; 47562; J2704; J2001; J2250; J3010 ×3; J2175; A4216; J1170; J2710; J7120; J0694; J2405

== ENCOUNTER 2023-12-14 11:29 | Emergency (ER) | payer SELFPAY ==
[2023-12-14 12:11] LABS: Absolute Eosinophils 0.4 K/uL (0-0.5); Absolute Lymphocytes (CBC) 2.3 K/uL (0.7-4.9); Absolute Monocytes 1.1 K/uL (0.1-1.3); Absolute Neutrophil 4.5 K/uL (1.8-8.0); Basophils % 0.5 % (0-1.3); Eosinophils % 4.9 % (0-4.4); Hematocrit 47.3 % (39.6-49.0); Hemoglobin 16.3 g/dL (13.6-17.9); Lymphocytes % 27.6 % (15.3-44.8); MCH 33.2 pg (27.0-35.0); MCHC 34.5 g/dL (32.0-36.0); MCV 96.4 fL (80-100); Platelets 282 thou/uL (152-406); RBC Red Blood Cell Count 4.91 M/uL (4.33-5.43); Red Cell Distribution Width 13.1 % (12.1-15.2)
--- NOTE | 2023-12-14 12:16 | RAD REPORT ---
EXAM DESCRIPTION: CTAbdomen Pelvis W Contrast - 12/14/2023 12:00 pm CLINICAL HISTORY: rectal bleeding COMPARISON: Abdomen Pelvis W Contrast dated 09/10/2021 TECHNIQUE: CT of the abdomen and pelvis was performed with contrast. All CT scans are performed using dose optimization technique as appropriate and may include automated exposure control or mA/KV adjustment according to patient size. FINDINGS: Lower chest: No acute abnormality. Liver: No acute abnormality or suspicious lesions. Biliary: No biliary ductal dilatation. Cholecystectomy Stomach: No significant focal abnormality. Duodenum: No significant focal abnormality. Pancreas: No significant abnormality. Spleen: No significant abnormality. Adrenal: No suspicious lesions. Kidney/ureter: No hydronephrosis. No renal calculi. Subcentimeter right upper pole renal lesion is al most certainly benign. Retroperitoneum: No retroperitoneal adenopathy. Vascular: No aneurysm. Bowel: Mild hyperdensity of the contents within the colon. This could be from blood intermixed with c olonic contents. Hyperdensity at the cecum and terminal ileum noted which is nonspecific and could be ingested contents versus intraluminal blood. Normal appendix. Peritoneum: No ascites or free air. Bladder: Grossly unremarkable. Reproductive: No adnexal masses. Bones: No acute fracture. Transitional S1 vertebral body. Other: n/a IMPRESSION: No acute intra-abdominal or pelvic finding. No definite source of gastrointestinal bleed ing identified. Mildly hyperdense contents at the cecum and terminal ileum could conceivably be the s ource of bleeding but a multiphase CTA with noncontrast exam would be needed to evaluate. A several h our delay would be needed however as the current contrast would need to clear the vascular system if that is desired. Otherwise, a nuclear medicine bleeding scan could be obtained. The dense material co uld simply represent ingested material as well.
[2023-12-14 12:19] LABS: PT Prothrombin Time 10.3 SECONDS (9.5-12.5); PTT, Activated Partial Thromb 36.9 SECONDS (24.3-36.9); Protime INR 0.93
[2023-12-14 12:35] LABS: Albumin 3.9 g/dL (3.4-5.0); Albumin/Globulin Ratio 1.2 (1.1-1.8); Anion Gap 7.6 mEq/L (5.0-15.0); Bilirubin Total 0.4 mg/dL (0.2-1.0); Globulin 3.3 g/dL (2.3-3.5); Protein, Total 7.2 g/dL (6.4-8.2)
[2023-12-14 12:36] LABS: Potassium 4.6 mEq/L (3.5-5.1)
--- NOTE | 2023-12-14 13:11 | EDPHYS ---
Physician Documentation [facility] Name: Dipesh Benitez Age: 33 yrs Sex: Male : 1990 Arrival Date: 12/14/2023 Time: 11:29 Bed 18 Private MD: ED Physician Mickey Irwin HPI: 12/13 13:06 This 33 yrs old Male presents to ER via Ambulatory with complaints of Bloody Stools. rn 13:06 The patient presents to the emergency department with rectal bleeding, a moderate rn amount, bright red blood with bowel movement, 9 times since symptom onset. Onset: The symptoms/episode began/occurred this morning. Abdominal pain: none is appreciated. Modifying factors: The symptoms are alleviated by nothing, the symptoms are aggravated by nothing. Severity of symptoms: At their worst the symptoms were moderate in the emergency department the symptoms are unchanged. The patient has not experienced similar symptoms in the past. Patient reports painless rectal bleeding that began this morning. Has now gone 9 times. No stool. All blood. No trauma. No blood thinners. Has never happened before. No abdominal pain. No syncope. No dyspnea.. Historical: - Allergies: 11:43 No Known Allergies; ll1 - PMHx: 11:43 GERD; ll1 - PSHx: 11:43 Cholecystectomy; ll1 - Immunization history:: Adult Immunizations up to date. - Social history:: Smoking status: Patient reports the use of cigarette tobacco products, denies chronic smoking, but will smoke occasionally. - Family history:: not pertinent. - Hospitalizations: : No recent hospitalization is reported. ROS: 13:06 Constitutional: Negative for fever, chills, and weight loss, Cardiovascular: Negative rn for chest pain, palpitations, and edema, Respiratory: Negative for shortness of breath, cough, wheezing, and pleuritic chest pain, Abdomen/GI: Positive for bloody stool Back: Negative for injury and pain, : Negative for injury, bleeding, discharge, and swelling, MS/Extremity: Negative for injury and deformity, Skin: Negative for injury, rash, and discoloration, Neuro: Negative for headache, weakness, numbness, tingling, and seizure, Exam: 13:06 Constitutional: This is a well developed, well nourished patient who is awake, alert, rn and in no acute distress. Head/Face: Normocephalic, atraumatic. Cardiovascular: Regular rate and rhythm. No pulse deficits. Respiratory: No increased work of breathing, no retractions or nasal flaring. Abdomen/GI: Soft, non-tender Vital Signs: 11:41 BP 149 / 98; Pulse 87; Resp 17; Temp 97; Pulse Ox 99% ; Pain 0/10; ll1 13:19 BP 132 / 96; Pulse 86; Resp 18; Temp 97.2(TE); Pulse Ox 96% on R/A; nj1 14:15 BP 135 / 85; Pulse 80; Resp 18; Pulse Ox 95% on R/A; nj1 11:41 Pain Scale: Adult ll1 MDM: 11:40 Patient medically screened. rn 13:06 Differential diagnosis: hemorrhoids, AVM, internal hemorrhoids. Data reviewed: vital rn signs, nurses notes, lab test result(s), radiologic studies, CT scan, and as a result, I will discharge patient. Counseling: I had a detailed discussion with the patient and/or guardian regarding the historical points, exam findings, and any diagnostic results supporting the discharge/admit diagnosis, lab results, radiology results, the need for outpatient follow up, to return to the emergency department if symptoms worsen or persist or if there are any questions or concerns that arise at home. Special discussion:. ED course: Patient states bleeding has gotten worse, has had 5 more episodes since arrival. Stable H\T\H and no acute findings on CT abdomen pelvis but will admit for GI evaluation and endoscopy. No GI here, will have to transfer. prefers transfer to [place] is easier drive for. 12/13 11:46 Order name: CBC with Diff; Complete Time: 12:56 rn 12/13 11:46 Order name: CMP; Complete Time: 12:56 rn 12/13 11:46 Order name: Lipase; Complete Time: 12:56 rn 12/13 11:46 Order name: Protime (+inr); Complete Time: 12:56 rn 12/13 11:46 Order name: Ptt, Activated; Complete Time: 12:56 rn 12/13 11:46 Order name: CT Abd/Pelvis - IV Contrast Only; Complete Time: 12:56 rn 12/13 11:46 Order name: IV Saline Lock; Complete Time: 13:14 rn 04/11 11:46 Order name: Labs collected and sent; Complete Time: 13:00 rn Administered Medications: No medications were administered Disposition Summary: 12/14/23 13:10 Transfer Ordered Notes: Transfer Location: [facility]-System rn Reason: Higher level of care rn Condition: Stable rn Problem: new rn Symptoms: have worsened rn Accepting Physician: (12/14/23 14:48) nj1 Diagnosis - Rectal bleeding rn Forms: - Medication Reconciliation Form rn - SBAR form rn Signatures: Dispatcher [employer] EDMS Mickey Irwin MD MD rn Lewis, Lynsay RN RN ll1 Pamela Lopez RN RN nj1 Corrections: (The following items were deleted from the chart) 11:46 11:46 CBC+H.LAB.BRZ ordered. EDMS EDMS 11:46 11:46 COMPREHENSIVE METABOLIC PANEL+C.LAB.BRZ ordered. EDMS EDMS 11:46 11:46 LIPASE+C.LAB.BRZ ordered. EDMS EDMS 11:46 11:46 PROTIME (+INR)+COAG.LAB.BRZ ordered. EDMS EDMS 11:46 11:46 PTT, ACTIVATED+COAG.LAB.BRZ ordered. EDMS EDMS 14:48 13:10 rn nj1
--- NOTE | 2023-12-14 13:11 | ER ---
Nurse's Notes [facility] Name: Dipesh Benitez Age: 33 yrs Sex: Male : 1990 Arrival Date: 12/14/2023 Time: 11:29 Bed 18 Private MD: Diagnosis: Rectal bleeding Presentation: 12/13 11:41 Chief complaint: Patient states: 4 bloody diarrhea stools with bright red blood started ll1 this AM. No pain. Coronavirus screen: Client denies travel out of the [place] in the last 14 days. At this time, the client does not indicate any symptoms associated with coronavirus-19. Ebola Screen: Patient denies travel to an Ebola-affected area in the 21 days before illness onset. Initial Sepsis Screen: Does the patient meet any 2 criteria? No. Patient's initial sepsis screen is negative. Does the patient have a suspected source of infection? No. Patient's initial sepsis screen is negative. Risk Assessment: Do you want to hurt yourself or someone else? Patient reports no desire to harm self or others. Onset of symptoms was December 14, 2023. 11:41 Method Of Arrival: Ambulatory ll1 11:41 Acuity: ARLINE 3 ll1 Triage Assessment: 11:43 General: Appears in no apparent distress. Behavior is calm, cooperative, appropriate ll1 for age. Pain: Denies pain. GI: Reports bloody stool. Historical: - Allergies: 11:43 No Known Allergies; ll1 - PMHx: 11:43 GERD; ll1 - PSHx: 11:43 Cholecystectomy; ll1 - Immunization history:: Adult Immunizations up to date. - Social history:: Smoking status: Patient reports the use of cigarette tobacco products, denies chronic smoking, but will smoke occasionally. - Family history:: not pertinent. - Hospitalizations: : No recent hospitalization is reported. Screenin:13 [facility] ED Fall Risk Assessment (Adult) History of falling in the last 3 months, nj1 including since admission No falls in past 3 months (0 pts) Confusion or Disorientation No (0 pts) Intoxicated or Sedated No (0 pts) Impaired Gait No (0 pts) Mobility Assist Device Used No (0 pt) Altered Elimination No (0 pt) Score/Fall Risk Level 0 - 2 = Low Risk Oriented to surroundings, Maintained a safe environment, Hourly rounding (assess needs \T\ fall precautionary measures) done. Abuse screen: Denies threats or abuse. Denies injuries from another. Nutritional screening: No deficits noted. Tuberculosis screening: No symptoms or risk factors identified. Assessment: 13:12 General: Appears in no apparent distress. comfortable, Behavior is calm, cooperative, nj1 appropriate for age. Pain: Denies pain. Neuro: No deficits noted. Cardiovascular: Patient's skin is warm and dry. Respiratory: Airway is patent Respiratory effort is even, unlabored. GI: Reports bloody stool. 14:10 Reassessment: Patient appears in no apparent distress at this time. Patient and/or nj1 family updated on plan of care and expected duration. Pain level reassessed. Patient is alert, oriented x 3, equal unlabored respirations, skin warm/dry/pink. 14:40 Reassessment: EMS here to transport patient to [facility]. Report given to Kylie claros EMT. Vital Signs: 11:41 BP 149 / 98; Pulse 87; Resp 17; Temp 97; Pulse Ox 99% ; Pain 0/10; ll1 13:19 BP 132 / 96; Pulse 86; Resp 18; Temp 97.2(TE); Pulse Ox 96% on R/A; nj1 14:15 BP 135 / 85; Pulse 80; Resp 18; Pulse Ox 95% on R/A; nj1 11:41 Pain Scale: Adult ll1 ED Course: 11:30 Patient arrived in ED. rg4 11:39 Mickey Irwin MD is Attending Physician. rn 11:43 Triage completed. ll1 11:43 Arm band placed on. ll1 12:00 CT Abd/Pelvis - IV Contrast Only In Process Unspecified. EDMS 12:03 CT completed. Patient tolerated procedure well. Note: 22 g diffuics to rt ac, llabs sj drawn and sent by liss i ct. 13:00 Pamela Lopez, RN is Primary Nurse. nj1 13:13 Patient has correct armband on for positive identification. Bed in low position. Call mo1 light in reach. Adult w/ patient. 13:15 Provided Education on: call light, fall precautions. nj1 14:51 No provider procedures requiring assistance completed. nj1 14:51 Patient transferred, IV remains in place. nj1 Administered Medications: No medications were administered Medication: 14:52 VIS not applicable for this client. nj1 Outcome: 13:10 ER care complete, transfer ordered by rn 14:48 Patient left the ED. nj1 14:51 Transferred by ground EMS to [facility], Transfer form nj1 completed. 14:51 Condition: stable 14:51 Instructed on the need for transfer, Signatures: Dispatcher [employer] Liss Rubio Roman, MD MD rn Garcia, Rubi 4 Odalys Lagos RN RN ll1 Pamela Lopez RN RN nj1 Corrections: (The following items were deleted from the chart) 11:44 11:41 Pulse 92bpm; Resp 17bpm; Pulse Ox 99%; Temp 97F; Pain 0/10, Adult; ll1 ll1
[2023-12-14 16:57] VITALS: BP 132/96; TEMP 97.2; O2SAT 96
== END 2023-12-14 14:48 | disposition short-term general hospital (02) ==
LOC: ER 11:29
DX: K62.5 Hemorrhage of anus and rectum (principal)
CPT/HCPCS: 36415; 74177; 80053; 83690; 85025; 85610; 85730; 99285; Q9967